=== PATIENT | male | born 1970 | race Two or more races ===

== ENCOUNTER 2019-07-25 11:56 | Emergency (ER) | payer OTHER ==
[~2019-07-25] VITALS: Ht 177.8 cm; Wt 86.0 kg
[2019-07-25 12:03] VITALS: BP 150/80
== END 2019-07-25 19:37 | disposition left against medical advice (07) ==
LOC: ER 11:56
DX: Z53.21 Procedure and treatment not carried out due to patient leaving prior to being seen by health care provider (principal)